=== PATIENT | female | born 1935 | race Caucasian/White ===

== ENCOUNTER 2016-11-10 08:18 | Day surgery (SDC) | payer MEDICARE, OTHER ==
[2006-03-12 03:41] VITALS: BP 129/65
[~2016-11-10] VITALS: Ht 162.6 cm; Wt 86.9 kg
[~2016-11-10 08:18] MED LIST: ACTOS 15MG TAB15 MG PO; ASPIRIN 81M81 MG/TA2 PO; CLEOCIN HCL300 MG; COZAAR 50MG50 MG/TAB PO; MULTIPLE VITAMI1 CAP PO; PROBIOTIC-SUNMARK; ZOCOR 20MG20 MG PO
[2016-11-10 08:45] VITALS: BP 128/73; PULSE 96; TEMP 99.1
[2016-11-10 11:10] VITALS: BP 142/75; PULSE 98
[2016-11-10 11:30] VITALS: BP 141/72; PULSE 95
[2016-11-10 11:45] VITALS: BP 141/75; PULSE 100
[2016-11-10 12:00] VITALS: BP 140/78; PULSE 104
== END 2016-11-10 12:26 | disposition home or self-care (01) ==
LOC: SDCO 08:18 → MEDICAL 08:41 → SDCO 10:00
DX: R91.1 Solitary pulmonary nodule (principal); E11.9 Type 2 diabetes mellitus without complications; Z87.891 Personal history of nicotine dependence
CPT/HCPCS: OP; J2704; J7120

== ENCOUNTER 2016-11-17 08:23 | Outpatient (CLI) | payer MEDICARE, OTHER ==
[2006-03-12 03:41] VITALS: BP 129/65
[2016-11-17] VITALS (14 sets, daily range): BP systolic 92–119; BP diastolic 50–77; PULSE 71–104; TEMP 97.9
[~2016-11-17] VITALS: Ht 162.6 cm; Wt 90.9 kg
[2016-11-17] MEDS ORDERED: LEVAQUIN 750MG750 M1 PO (09:00)
== END 2016-11-17 12:37 | disposition home or self-care (01) ==
LOC: COL.RAD 08:23
DX: C34.11 Malignant neoplasm of upper lobe, right bronchus or lung (principal)
CPT/HCPCS: J2250; J3010

== ENCOUNTER → 2016-11-27 | Outpatient (CLI) | payer MEDICARE, OTHER ==
[2006-03-12 03:41] VITALS: BP 129/65
[~2016-11-27] VITALS: Ht 162.6 cm; Wt 90.9 kg
[~2016-11-27] MED LIST changes: +LEVAQUIN 750MG750 M1 PO
[2016-11-27 13:17] VITALS: BP 124/74; PULSE 92
[2016-11-27 14:50] VITALS: BP 104/69; PULSE 94
[2016-11-27 15:05] VITALS: BP 96/67; PULSE 91
== END ==
LOC: COL.RAD 12:43
DX: R22.1 Localized swelling, mass and lump, neck (principal)

== ENCOUNTER → 2017-07-24 | Outpatient (CLI) | payer MEDICARE, OTHER | LOC: COL.RAD 09:14 | DX: C34.90 Malignant neoplasm of unspecified part of unspecified bronchus or lung (principal); K57.30 Diverticulosis of large intestine without perforation or abscess without bleeding; K80.20 Calculus of gallbladder without cholecystitis without obstruction; E11.9 Type 2 diabetes mellitus without complications; Z92.21 Personal history of antineoplastic chemotherapy | CPT/HCPCS: Q9967 ==

== ENCOUNTER 2017-08-06 11:30 | Outpatient (RCR) | payer MEDICARE, OTHER | END 2017-08-14 10:49 | LOC: MKS.ESL.PT 11:30 | DX: M54.40 Lumbago with sciatica, unspecified side (principal); G89.29 Other chronic pain | CPT/HCPCS: G8990-GP; G8991-GP ==

== ENCOUNTER → 2017-10-20 | Outpatient (CLI) | payer MEDICARE, OTHER | LOC: COL.PUL 12:45 | DX: C34.2 Malignant neoplasm of middle lobe, bronchus or lung (principal); I10 Essential (primary) hypertension; Z87.891 Personal history of nicotine dependence ==

== ENCOUNTER 2020-07-08 10:38 | Emergency (ER) | payer MEDICARE, OTHER ==
[2006-03-12 03:41] VITALS: BP 129/65
[~2020-07-08] VITALS: Ht 162.6 cm; Wt 90.9 kg
[2020-07-08 10:45] VITALS: TEMP 97.7
[2020-07-08 11:17] LABS: BASO % 0.4 % (0.0-2.0); EOS # 0.1 (0.0-0.7); EOS % 1.1 % (0-4.0); GRAN # 3.2 (1.4-6.5); GRAN % 57.7 % (42.2-75.2); HEMATOCRIT 41.3 % (37.0-47.0); HEMOGLOBIN 13.5 g/dl (12.5-16.0); LYMPH # 1.7 (1.2-3.4); LYMPH % 29.5 % (20.0-51.0); MEAN CELL VOLUME 95 fl (80.0-100.0); MEAN CORPUSCULAR HEMOGLOBIN 31 pg (27.0-31.0); MEAN CORPUSCULAR HGB CONC 33 g/dl (33.0-37.0); MEAN PLATELET VOLUME 9.1 fl (7.4-10.4); MONO # 0.6 (0.1-0.6); MONO % 10.9 % (1.7-9.3); PLATELET COUNT 173 K/mm3 (130-400); RED BLOOD COUNT 4.35 M/mm3 (4.10-5.30); REDCELL DISTRIBUTION WIDTH-CV 12.8 % (11.5-14.5)
[2020-07-08 11:37] LABS: ALANINE AMINOTRANSFERASE 28 U/L (4-34); ALKALINE PHOSPHATASE 69 U/L (50-136); ANION GAP 10 mmol/L (7-16); AST,SGOT 38 U/L (15-37); BILIRUBIN,TOTAL 0.9 mg/dL (0.0-1.0); BLOOD UREA NITROGEN 20 mg/dL (7-17); CALCIUM 9.5 mg/dL (8.4-10.2); CARBON DIOXIDE 23 mmol/L (22-30); CHLORIDE 104 mmol/L (98-107); CREATININE, serum 0.71 (0.52-1.25); GLUCOSE 255 mg/dL (74-106); MAGNESIUM 1.7 mg/dL (1.6-2.3); POTASSIUM 4.3 mmol/L (3.4-5.0); SODIUM 136 mmol/L (137-145)
[2020-07-08 11:51] LABS: TROPONIN-I < 0.012 ng/mL (0.000-0.035)
[2020-07-08 12:08] LABS: THYROID STIMULATING HORMONE < 0.015 uIU/mL (0.465-4.680)
[2020-07-08 12:11] LABS: COLLECTION METHOD CLEAN CATCH
[2020-07-08 12:40] LABS: MUCOUS Present /lpf; PH 6 (5-8); SQUAMOUS EPITHELIAL 0-2 /hpf; URINE APPEARANCE Hazy; URINE BACTERIA Rare /hpf; URINE BILIRUBIN Negative (NEGATIVE); URINE BLOOD Negative (NEGATIVE); URINE COLOR Yellow; URINE GLUCOSE 2+ (NEGATIVE); URINE KETONE Negative (NEGATIVE); URINE LEUKOCYTE ESTERASE Negative (NEGATIVE); URINE NITRATE Negative (NEGATIVE); URINE PROTEIN(semi-quant) Negative (NEGATIVE); URINE RBC 0-2 /hpf; URINE UROBILINOGEN Negative (NEGATIVE)
[2020-07-08] MEDS ORDERED: DOXYCYCLINE 10100 MG PO (15:59)
[2020-07-08] MEDS ORDERED: TAPAZOLE10 MG PO (15:59)
[2020-07-08] MEDS ORDERED: INDERAL 20MG20 MG PO (15:59)
[2020-07-08] MEDS ORDERED: AMOXICILLIN 8751 TAB PO (15:59)
[2020-07-08 16:11] VITALS: BP 164/68; PULSE 97
== END 2020-07-08 16:25 | disposition home or self-care (01) ==
LOC: COL.ER 10:38
PROVIDERS: Emergency Medicine
DX: E05.90 Thyrotoxicosis, unspecified without thyrotoxic crisis or storm (principal); J18.9 Pneumonia, unspecified organism; E11.9 Type 2 diabetes mellitus without complications; Z88.6 Allergy status to analgesic agent; Z79.82 Long term (current) use of aspirin; Z85.118 Personal history of other malignant neoplasm of bronchus and lung
CPT/HCPCS: J0696; J7030; Q9967

== ENCOUNTER → 2020-12-14 | Outpatient (CLI) | payer MEDICARE, OTHER ==
[~2020-12-14] MED LIST changes: +AMOXICILLIN 8751 TAB PO; +DOXYCYCLINE 10100 MG PO; +INDERAL 20MG20 MG PO; +TAPAZOLE10 MG PO
== END ==
LOC: COL.RAD 10:54
DX: K80.20 Calculus of gallbladder without cholecystitis without obstruction (principal); Q25.1 Coarctation of aorta
CPT/HCPCS: Q9967

== ENCOUNTER → 2021-02-15 | Outpatient (CLI) | payer MEDICARE, OTHER | LOC: COL.RAD 12:28 | DX: I65.22 Occlusion and stenosis of left carotid artery (principal); I70.8 Atherosclerosis of other arteries; I77.1 Stricture of artery; Q25.1 Coarctation of aorta; R94.39 Abnormal result of other cardiovascular function study | CPT/HCPCS: Q9967 ==